=== PATIENT | male | born 1955 | race Hispanic/Latino ===

== ENCOUNTER 2019-03-22 13:28 | Outpatient (CLI) | payer OTHER ==
--- NOTE | 2019-03-22 17:15 | Magnetic Resonance Report ---
. MR pelvis wo/w con INDICATION: PEYRONIE'S DISEASE. TECHNIQUE: Multiplanar, multisequence MR images were obtained. COMPARISON: None available. FINDINGS: This study was performed with and without IV contrast. There is a small amount of peripheral longitud inal plaque seen within the left corpus cavernosum best seen on coronal T2 series 7 image 27 which ex tends for 2.4 cm in craniocaudal length. The right corpus cavernosum and associated tunica albuginea appears within normal limits without visualized plaque. No abnormal enhancement is seen on the postco ntrast images to suggest formation. There is no disruption of tunica albuginea to suggest sequela fro m prior penile fracture. No abnormal enhancement is seen on postcontrast images. IMPRESSION: 1. Peyronie's disease with thin plaque involving the peripheral aspect of left distal corpus cavernos um. Signer Name: Kameron Vu MD Signed: 03/22/2019 5:11 PM Workstation Name: [id number]
== END 2019-03-22 13:29 | disposition home or self-care (01) ==
LOC: MRI 13:28
PROVIDERS: ATTEND Urology
DX: N48.6 Induration penis plastica (principal)
CPT/HCPCS: 36415; 72197; 82565; 84520; A9577